=== PATIENT | female | born 1955 | race Caucasian/White ===

== ENCOUNTER 2017-02-11 13:13 | Emergency (ER) | payer OTHER ==
[~2017-02-11 13:13] MED LIST: CYTOTEC 100 M100 MCG PO; FERROUS SULFAT325 M1 PO; LISINOPRIL20 MG PO; MECLIZINE HCL25 MG PO; MISOPROSTOL100 MCG PO; NEURONTIN 400400 MG PO; NORCO 10-325 T1 EACH PO; NORVASC 5 MG TAB5 MG PO; PROTONIX40 MG PO; SERTRALINE HCL50 MG PO
[2017-02-11 14:04] LABS: HEMOGLOBIN 9.5 gm/dl (12.3-15.3); RED BLOOD COUNT 3.53 M/UL (4.00-5.10); WHITE BLOOD COUNT 7.6 K/UL (4.5-11.0)
[2017-02-11 14:30] LABS: BUN/CREATININE RATIO 15 (0-10)
== END 2017-02-11 16:55 | disposition home or self-care (01) ==
LOC: ER1 13:13
PROVIDERS: Emergency Medicine
DX: D64.9 Anemia, unspecified (principal); R31.9 Hematuria, unspecified; R06.00 Dyspnea, unspecified; R51 Headache; Z79.899 Other long term (current) drug therapy
CPT/HCPCS: 36415; 70450; 71010; 80053; 81001; 82550; 82553; 83605; 83690; 83874; 83880; 84443; 84484; 85025; 85379; 93005; 96360; 99285; J7040

== ENCOUNTER 2020-12-05 14:11 | Emergency (ER) | payer OTHER ==
[~2020-12-05 14:11] MED LIST changes: +AMITRIPTYLINE H75 MG PO; +AMITRIPTYLINE100 MG PO; +AUGMENTIN 500-500 MG PO; +FERROUS SULFAT325 M2 PO; +GABAPENTIN600 MG PO; +LEVAQUIN500 MG PO; +LOPRESSOR 25 MG25 MG PO; -NEURONTIN 400400 MG PO; -NORCO 10-325 T1 EACH PO; +NORCO 7.5-3251 EACH PO; +SYMBICORT 16010.2 GM INH
[2020-12-05 15:50] LABS: HEMOGLOBIN 9.2 gm/dl (12.3-15.3); RED BLOOD COUNT 4.06 M/UL (4.00-5.10); WHITE BLOOD COUNT 8.9 K/UL (4.5-11.0)
[2020-12-05 16:17] LABS: BUN/CREATININE RATIO 11 (0-10)
== END 2020-12-05 17:26 | disposition home or self-care (01) ==
LOC: ER1 14:11
PROVIDERS: Physician Assistant
DX: D64.9 Anemia, unspecified (principal); M19.90 Unspecified osteoarthritis, unspecified site; Z79.891 Long term (current) use of opiate analgesic
CPT/HCPCS: 80053; 85025; 85610; 93005; 99285

== ENCOUNTER → 2021-05-11 | Outpatient (CLI) | payer OTHER ==
[~2021-05-11] MED LIST changes: -AMITRIPTYLINE100 MG PO; +DRISDOL1250 MCG PO; +FLONASE ALLER15.8 ML; +HYDROCODON-ACE1 EAC2 PO; +LEVOFLOXACIN500 MG PO; -LOPRESSOR 25 MG25 MG PO; +NORVASC5 MG PO; +TOPROL XL50 MG PO
== END ==
LOC: RAD 11:35
DX: M47.896 Other spondylosis, lumbar region (principal); M46.1 Sacroiliitis, not elsewhere classified; M51.36 Other intervertebral disc degeneration, lumbar region; R20.2 Paresthesia of skin
CPT/HCPCS: 72110

== ENCOUNTER 2021-05-30 08:40 | Observation (INO) | payer OTHER ==
[~2021-05-30] VITALS: Ht 152.4 cm; Wt 49.0 kg
[~2021-05-30 08:40] MED LIST changes: -AMITRIPTYLINE H75 MG PO; -DRISDOL1250 MCG PO; -FLONASE ALLER15.8 ML; -HYDROCODON-ACE1 EAC2 PO; -LEVOFLOXACIN500 MG PO; -NORVASC5 MG PO; -SYMBICORT 16010.2 GM INH; -TOPROL XL50 MG PO
[2021-05-30 09:24] LABS: HEMOGLOBIN 9.1 gm/dl (12.3-15.3); RED BLOOD COUNT 4.01 M/UL (4.00-5.10); WHITE BLOOD COUNT 17.8 K/UL (4.5-11.0)
[2021-05-30 09:59] LABS: BUN/CREATININE RATIO 13 (0-10)
[2021-05-30] MEDS ORDERED: AMITRIPTYLINE H75 MG PO ×2 (10:12→15:59)
[2021-05-30] MEDS ORDERED: TOPROL XL50 MG PO (10:35)
[2021-05-30] MEDS ORDERED: HYDROCODON-ACE1 EAC2 PO (15:16)
[2021-05-30] MEDS ORDERED: FLONASE ALLER15.8 ML (15:17)
[2021-05-30] MEDS ORDERED: DRISDOL1250 MCG PO (15:17)
[2021-05-30] MEDS ORDERED: NORVASC5 MG PO (15:17)
[2021-05-30] MEDS ORDERED: SYMBICORT 16010.2 GM INH (17:20)
[2021-05-31 06:39] LABS: HEMOGLOBIN 8.6 gm/dl (12.3-15.3); RED BLOOD COUNT 3.84 M/UL (4.00-5.10); WHITE BLOOD COUNT 11.1 K/UL (4.5-11.0)
[2021-05-31 07:21] LABS: BUN/CREATININE RATIO 10 (0-10)
[2021-05-31] MEDS ORDERED: LEVOFLOXACIN500 MG PO (11:48)
== END 2021-05-31 11:45 | disposition home or self-care (01) ==
LOC: ER1 08:40 → MED SURG 4 13:35 → CDU 13:35 → MED SURG 4 18:45
PROVIDERS: Physician Assistant; ADMIT Internal Medicine
DX: A41.9 Sepsis, unspecified organism (principal); J18.9 Pneumonia, unspecified organism; Z20.822 Contact with and (suspected) exposure to COVID-19; I10 Essential (primary) hypertension; M54.5 Low back pain; K56.7 Ileus, unspecified; K83.8 Other specified diseases of biliary tract
CPT/HCPCS: 0240U; 71045; 71260; 80053; 81001; 82550; 82553; 82607; 82746; 83540; 83550; 83605; 83735; 83874; 84439; 84443; 84484; 85025; 87040; 87086; 93005; 96374; 96375; 99285; G0378; J0456; J0696; J1956; J7030; Q9967

== ENCOUNTER → 2021-11-04 | Outpatient (CLI) | payer OTHER ==
[~2021-11-04] MED LIST changes: +AMITRIPTYLINE H75 MG PO; +DRISDOL1250 MCG PO; +FLONASE ALLER15.8 ML; +HYDROCODON-ACE1 EAC2 PO; +LEVOFLOXACIN500 MG PO; +NORVASC5 MG PO; +SYMBICORT 16010.2 GM INH; +TOPROL XL50 MG PO
== END ==
LOC: MRI 10-24 16:00
DX: M51.36 Other intervertebral disc degeneration, lumbar region (principal); M51.26 Other intervertebral disc displacement, lumbar region; M47.816 Spondylosis without myelopathy or radiculopathy, lumbar region
CPT/HCPCS: 72148

== ENCOUNTER 2022-01-30 10:38 | Inpatient (IN) | payer OTHER ==
[~2022-01-30] VITALS: Ht 152.4 cm; Wt 47.2 kg
[~2022-01-30 10:38] MED LIST changes: -PROTONIX40 MG PO; -SYMBICORT 16010.2 GM INH
[2022-01-30 11:34] LABS: HEMOGLOBIN 11.4 gm/dl (12.3-15.3); RED BLOOD COUNT 4.14 M/UL (4.00-5.10); WHITE BLOOD COUNT 14.3 K/UL (4.5-11.0)
[2022-01-30 12:00] LABS: BUN/CREATININE RATIO 13 (0-10)
--- NOTE | 2022-01-31 00:56 | NUR ---
UNABLE TO COMPLETE PT'S HOME MEDICATION RECONCILIATION. PT UNABLE TO PROVIDE LIST OF MEDICATIONS. PT ALSO UNABLE TO VERIFY CURRENT MEDICATIONS AT THIS TIME.
[2022-01-31] MEDS ORDERED: PROTONIX40 MG PO (01:26)
[2022-01-31 06:16] LABS: HEMOGLOBIN 9.7 gm/dl (12.3-15.3); WHITE BLOOD COUNT 13.3 K/UL (4.5-11.0)
[2022-01-31 06:22] LABS: RED BLOOD COUNT 3.51 M/UL (4.00-5.10)
[2022-01-31 06:45] LABS: BUN/CREATININE RATIO 11 (0-10)
[2022-01-31] MEDS ORDERED: FERROUS SU220 MG/5 M PO (11:37)
[2022-01-31] MEDS ORDERED: LOPERAMIDE2 MG PO (11:39)
[2022-01-31] MEDS ORDERED: SYMBICORT 16010.2 GM INH (17:20)
[2022-02-01 05:44] LABS: HEMOGLOBIN 10.7 gm/dl (12.3-15.3); RED BLOOD COUNT 3.92 M/UL (4.00-5.10); WHITE BLOOD COUNT 10.7 K/UL (4.5-11.0)
[2022-02-01 06:13] LABS: BUN/CREATININE RATIO 14 (0-10)
[2022-02-01] MEDS ORDERED: OMNICEF 300 MG300 MG PO (09:14)
== END 2022-02-01 10:10 | disposition home or self-care (01) | DRG 177 ==
LOC: ER1 10:38 → CDU 17:30 → MED SURG 4 17:30
PROVIDERS: Emergency Medicine; Internal Medicine; ADMIT Internal Medicine Infectious Disease
DX: J69.0 Pneumonitis due to inhalation of food and vomit (principal); A41.9 Sepsis, unspecified organism; J18.9 Pneumonia, unspecified organism; I10 Essential (primary) hypertension; G89.29 Other chronic pain; K21.9 Gastro-esophageal reflux disease without esophagitis; Z20.822 Contact with and (suspected) exposure to COVID-19; F32.A Depression, unspecified; J02.9 Acute pharyngitis, unspecified; F41.9 Anxiety disorder, unspecified; Z87.11 Personal history of peptic ulcer disease; Z90.49 Acquired absence of other specified parts of digestive tract; Z90.710 Acquired absence of both cervix and uterus; Z82.49 Family history of ischemic heart disease and other diseases of the circulatory system
CPT/HCPCS: 0240U; 36415; 71045; 80048; 80053; 81001; 83605; 83735; 84100; 85025; 86140; 86403; 87040; 87081; 87086; 87880; 93005; 96374; 96375; 99284; J0696; J1885; J2405; J2543